=== PATIENT | female | born 1990 | race Caucasian/White ===

== ENCOUNTER 2023-03-01 09:20 | Outpatient (REF) | payer OTHER, SELFPAY ==
[2023-03-01 10:39] LABS: Influenza Virus A Antigen Negative; Influenza Virus B Antigen Negative; Internal Control Within Normal Limits; Strep A Antigen Screen Positive
[2023-03-01 11:58] LABS: SARS-CoV-2 NAA NOT DETECTED (NOT DETECTE)
== END 2023-03-01 09:21 | disposition home or self-care (01) ==
LOC: LAB 09:20
PROVIDERS: PCP Family Medicine; Visit Provider Family Medicine
DX: J02.9 Acute pharyngitis, unspecified (principal); R52 Pain, unspecified
CPT/HCPCS: 87635; 87804; 87880

== ENCOUNTER 2023-04-08 08:22 | Outpatient (OUT) | payer OTHER, SELFPAY ==
--- OUTSIDE RECORDS SUMMARY | 2023-04-08 08:27 | XMS_ITS | CCD ---
Author Name Unknown Address [address] [facility] [address] [place] [id number] Organization [facility] Care Team Providers Care Staff Electronic Warfare Officer Name Role Phone ALIA OLGUIN Unavailable Unavailable NASEEM DELUCA Unavailable Unavailable ALIA OLGUIN Unavailable Unavailable NASEEM DELUCA Unavailable Unavailable YOSI, DR GUSMAN Consulting Unavailable YOSI, DR GUSMAN Attending Unavailable YOSI, DR GUSMAN Admitting Unavailable YOSI, DR GUSMAN Primary Care Unavailable YOSI, DR GUSMAN Primary Care Unavailable JEAN KIM Attending Unavailable JULIO, JEAN Admitting Unavailable TEO, DR VALERIE Velasquez Consulting Unavailable JEAN KIM Consulting Unavailable MENA, DR VENTURA Consulting Unavailable MENA, DR VENTURA Attending Unavailable MENA, DR VENTURA Admitting Unavailable YOSI, DR GUSMAN Primary Care Unavailable Problems Active Problems Problem Classification Problem Date Documented Da te Episodic/Chronic Menstrual disorders (1 source) Amenorrhea, unspecified; Translations: [Amenorrhea, unspecified] Onset: 10-06-2016 Chronic Unclassified (1 source) Less than 8 weeks gestation of ; Translations: [Less than 8 weeks gestation of ] Onset: 10-20-2016 Unclassified (3 sources) COUGH, UNSPECIFIED; Translations: [COUGH, UNSPECIFIED] Onset: 03-25-2022 Unclassified (1 source) CONTACT W/AND (SUSP) EXPOS COVID-19; Translations: [CONTACT W/AND (SUSP) EXPOS COVID-19] Onset: 03-25-2022 Past or Other Problems Problem Classification Problem Date Documented Date Episodic/Chronic Immunizations and screening for infectious disease (1 source) Encounter for screening for human papillomavirus (HPV); Translations: [ENC SCREENING HUMAN PAPILLOMAVIRUS] Onset: 08-31-2021 Episodic Normal and/or delivery (2 sources) Encounter for supervision of other normal , unspecified trimester; Translations: [Encounter for test, result positive] Onset: 10-06-2016 Episodic Other connective tissue disease (4 sources) Pain in left lower leg; Translations: [PAIN IN LEFT LOWER LEG] Onset: 03-30-2021 Episodic Other screening for suspected conditions (not mental disorders or infectious disease) (4 sources) Encounter for screening for malignant neoplasm of cervix; Translations: [ENC SCREENING MALIG NEOPLASM CERV] Onset: 08-30-2021 Episodic Unclassified (1 source) COUGH, UNSPECIFIED; Translations: [COUGH, UNSPECIFIED] Onset: 03-22-2022 Results Test Name Value Interpretation Reference Range [facility]09 SARS-CoV-2 (COVID-19) RNA GLADYS+probe Ql (Unsp spec) Not detected Normal NOT DETECTED [facility] Comment on above: Result Comment: This test is not yet approved or cleared by the [place] FDA. When there are no FDA-approved or cleared tests available, and other criteria are met, FDA can make tests available under an emergency access mechanism called an Emergency Use Authorization (EUA). The EUA for this test is supported by the [place] of Health and Human Service's (HHS's) declaration that circumstances exist to justify the emergency use of in vitro diagnostics for the detection and/or diagnosis of the virus that causes COVID-19. This EUA will remain in effect (meaning this test can be used) for the duration of the COVID-19 declaration justifying emergency of IVDs, unless it is terminated or revoked by FDA (after which the test may no longer be used). When diagnostic testing is negative, the possibility of a false negative should be considered in the context of a patient's recent exposures and the presence of clinical signs and symptoms consistent with SARS-CoV-2. Performed By: #### C VDTBH #### [facility] [address] [place] [address] Renzo Caballero INFLUENZA A AND B AGon 03-22 INFLUANEGH SEE BELOW Normal [facility] Comment on above: Result Comment: Nega tive for Flu A protein angiten. Infection due to Flu A cannot be ruled out. Flu A angiten in the sample may be below the detection limit of the test. Performed By: #### I NFLUAB #### [facility] [address] [place] [address] Dr. Renzo Caballero [facility] SEE BELOW [facility] Comment on above: Result Comment: Nega tive for Flu B protein antigen. Infection due to Flu B cannot be ruled out. Flu B antigen in the sample may be below the detection limit of the test. Performed By: #### I NFLUAB #### [facility] [address] [place] [address] Dr. Renzo Caballero INFLUENZA A AG Negative Normal NEGATIVE SEE COMMENT [facility] Comment on above: Performed By: #### I NFLUAB #### [facility] [address] [place] [address] Dr. Renzo Caballero INFLUENZA B AG Negative Normal NEGATIVE SEE COMMENT [facility] Comment on above: Performed By: #### I NFLUAB #### [facility] [address] [place] [address] Dr. Renzo Caballero PAP ACOG PANEL 2: 30 to 65on 09-02-2021 . . Normal [facility] Comment on above: Result Comment: Perf ormed at: WB Performed By: #### [id number] #### [facility] [address] [place] [address] Dr. Renzo Caballero Age Gdln ACOG Testing 30-65 Normal [facility] Comment on above: Performed By: #### 4 [id number] #### [facility] [address] [place] [address] Dr. Renzo Caballero DIAGNOSIS: Comment Normal [facility] Comment on above: Result Comment: NEGA TIVE FOR INTRAEPITHELIAL LESION OR MALIGNANCY. Performed at: WB Performed By: #### 4 [id number] #### [facility] [address] [place] [address] Dr. Renzo Caballero HPV Aptima Negative Normal Negative [facility] Comment on above: Result Comment: This nucleic acid amplification test detects fourteen high-risk HPV types (16,18,31,33,35,39,45,51,52,56,58,59,66,68) without differentiation. Performed at: =G Performed By: #### 4 [id number] #### [facility] [address] [place] [address] Dr. Renzo Caballero Methodology: Comment Normal [facility] Comment on above: Result Comment: This liquid based ThinPrep(R) pap test was screened with the use of an image guided system. Performed at: WB Performed By: #### 4 [id number] #### [facility] [address] [address] [address] Renzo Caballero Note: Comment Normal [facility] Comment on above: Result Comment: The Pap smear is a screening test designed to aid in the detection of premalignant and malignant conditions of the uterine cervix. It is not a diagnostic procedure and should not be used as the sole means of detecting cervical cancer. Both false-positive and false-negative reports do occur. . Performed at: WB Performed By: #### 4 [id number] #### [facility] [address] [place] [address] Dr. Renzo Caballero Performed by: Comment Normal [facility] Comment on above: Result Comment: Tammie Natarajan, Project Control Manager (ASCP) Performed at: WB Performed By: #### 4 [id number] #### [facility] [address] [address] [address] Renzo Caballero Specimen adequacy: Comment Normal [facility] Comment on above: Result Comment: Sati sfactory for evaluation. Endocervical and/or squamous metaplastic cells (endocervical component) are present. Performed at: WB Performed By: #### 4 [id number] #### [facility] [address] [place] [address] Dr. Renzo Caballero US HILDA DOP LEG LTon 03-30-19 22 US HILDA DOP LEG LT EXAMINATION: US HILDA DOP LEG LT HISTORY: Pain of left lower leg COMPARISON: No relevant comparison available. FINDINGS: REGION: Left lower extremity THROMBI: None. COMPRESSIBILITY: Normal compressibility. FLOW: Normal waveform and antegrade flow between 5 and 20 cm/s. OTHER: None. IMPRESSION: 1. No deep vein thrombus within the left lower extremity. Electronically authenticated by: VALERIE BRUCE Date: 2021-03-30 17:12 Normal [facility] Chlamydia/GC DNA, TPon 10-24 Chlamydia Probe, TP Negative Normal NEG [facility] Comment on above: Result Comment: CHLA MYDIA TRACHOMATIS DNA not detected by nucleic acid amplification. Performed By: #### C YTCGP ####[address] [address] Gonorrhea Probe, TP Negative Normal NEG [facility] Comment on above: Result Comment: NEIS SERIA GONORRHOEAE DNA not detected by nucleic acid amplification.Performed at [address] [address] Performed By: #### C YTCGP ####[address] [address] Cytologyon 10-20-2016 Cytology (NOTE)[id number] Y LABORATORIESCONSULTING PATHOLOGISTS CORPORATIONANATOMIC [id number] [place] [address] [phone] Fax: GYNECOLOGIC CYTOLOGY REPORTPatient Name: SUJATA MONROE#: [id number] #[id number]: Cervical material, (ThinPrep vial, Imaging-assisted review)Clinical History: 7 weeksLEEP: 09/22/creening/routine papHigh Risk HPV DNA testing is requested if the diagnosis is ASC-USPrevious abnormal report: 07/2015, REI IIILMP: 08/10/16INTERPRETATIONCervic al material, (ThinPrep vial, Imaging-assisted review):Specimen Adequacy: Satisfactory for evaluation. - Endocervical/transformatio n zone component present.Descriptive Diagnosis: Negative for intraepithelial lesion or malignancy. Project Control Manager: RUSTY Wilkinson(ASCP)Electronically Signed Out/10/27/2016 Normal [facility] Chlamydia/GC DNA, Uron 10-07 Chlamydia Probe, Ur Negative Normal NEG [facility] Comment on above: Result Comment: CHLA MYDIA TRACHOMATIS DNA not detected by nucleic acid amplification. Performed By: #### U CGP ####[address] [address] Gonorrhea Probe, Ur Negative Normal NEG [facility] Comment on above: Result Comment: NEIS SERIA GONORRHOEAE DNA not detected by nucleic acid amplification.Performed at [address] [address] Performed By: #### U CGP ####[address] [address] Cult,Urine,CCon 10-07-2016 Cult,Urine,CC Specimen Description .URINE Performed at [address] [place] [address] Special Requests ccms Performed at [address] [place] [address] Culture NO SIGNIFICANT GROWTH Performed at [address] [address] Report Status FINAL 10/07/2016 Normal [facility] Comment on above: Performed By: #### C VESNA ####[address] [phone] [place] [address] HIV Ag/Abon 10-07-2016 HIV Ag/Ab NONREACTIVE Normal NR [facility] Comment on above: Result Comment: No l aboratory evidence of HIV infection. If acute HIV infection is suspected, consider testing for HIV-1 RNA.This is an FDA approved immunoassay that detects HIV-1 and HIV-2 antibodies and HIV-1 p24 antigen to screen for infection with HIV-1 or HIV-2.Performed at [address] [address] Performed By: #### H IVCMB ####[address] [address] Hep C Abon 10-07-2016 Hep C Ab NONREACTIVE Normal NR [facility] Comment on above: Result Comment: The hepatitis C procedure used in our laboratory is a Chemiluminescent test specific for three recombinant HCV antigens. A negative anti-HCV result indicates that the antibodies to hepatitis C virus are not present at this time.Individuals with reactive anti-HCV should be considered infected and infectious until proven otherwise. Confirmation of all equivocal or reactive results is recommended by ordering HCV RNA by PCR.Performed at [address] [address] Performed By: #### A HCV ####[address] [address] Profileon 7 T.pallidum Ab Screen NONREACTIVE Normal NR [facility] Comment on above: Result Comment: T. p allidum antibodies are not detected.There is no serological evidence of infection with T. pallidum (early primary syphilis cannot be excluded). Retest in 2-4 weeks if syphilis is clinically suspect.Performed at [address] [address] Performed By: #### P RENAT ####[address] [phone] [place] [address] Hep B Surf Ag NONREACTIVE Normal NR [facility] Comment on above: Result Comment: Perf ormed at [address] [address] Performed By: #### P RENAT ####[address] [phone] [place] [address] Rubella Ab, IgG 265.4 IU/mL Normal [facility] Comment on above: Result Comment: REFE RENCE RANGE:<5.0 NON-REACTIVE (non- immune)5.0 TO 9.9 EQUIVOCAL>=10.0 REACTIVE (immune)NOTE: NEW REFERENCE RANGEPerformed at [address] [address] Performed By: #### P RENAT ####[address] [phone] [place] [address] Profileon 7 Abs. Basophil 0.00 k/uL Normal 0.0-0.2 [facility] Comment on above: Result Comment: Perf ormed at [address] [place] [address] Performed By: #### P RENAT ####[address] [phone] [place] [address] Abs.Neutrophil (Seg) 4.40 k/uL Normal 1.8-7.7 [facility] Comment on above: Result Comment: Perf ormed at [address] [place] [address] Performed By: #### P RENAT ####[address] [phone] [place] [address] Basophils/100 WBC Auto (Bld) 0 % Normal [facility] Comment on above: Result Comment: Perf ormed at [address] [place] [address] Performed By: #### P RENAT ####[address] [phone] [place] [address] Eosinophils 0.30 10*3/uL Normal 0.0-0.4 [facility] Comment on above: Result Comment: Perf ormed at [address] [place] [address] Performed By: #### P RENAT ####[address] [phone] [place] [address] Eosinophils/100 leukocytes 4 % Normal [facility] Comment on above: Result Comment: Perf ormed at [address] [place] [address] Performed By: #### P RENAT ####[address] [phone] [place] [address] Erythrocyte distribution width Auto Ratio (RBC) 13.6 % Normal 12.1-15.2 [facility] Comment on above: Result Comment: Perf ormed at [address] [place] [address] Performed By: #### P RENAT ####[address] [phone] [place] [address] Erythrocytes (RBC) 4.25 10*6/uL Normal 4.0-5.2 [facility] Comment on above: Result Comment: Perf ormed at [address] [place] [address] Performed By: #### P RENAT ####[address] [phone] [place] [address] Hematocrit (HCT) 37.5 % Normal 36-46 [facility] Comment on above: Result Comment: Perf ormed at [address] [place] [address] Performed By: #### P RENAT ####[address] [phone] [place] [address] Hemoglobin mass conc (Bld) 12.4 g/dL Normal 12.0-16.0 [facility] Comment on above: Result Comment: Perf ormed at [address] [place] [address] Performed By: #### P RENAT ####[address] [phone] [place] [address] Lymphocytes 1.90 10*3/uL Normal 1.0-4.8 [facility] Comment on above: Result Comment: Perf ormed at [address] [place] [address] Performed By: #### P RENAT ####[address] [phone] [place] [address] Lymphocytes/100 leukocytes 26 % Normal [facility] Comment on above: Result Comment: Perf ormed at [address] [place] [address] Performed By: #### P RENAT ####[address] [phone] [place] [address] MCH 29.0 pg Normal 26-34 [facility] Comment on above: Result Comment: Perf ormed at [address] [place] [address] Performed By: #### P RENAT ####[address] [phone] [place] [address] MCHC mass conc (RBC) 33.0 g/dL Normal 31-37 [facility] Comment on above: Result Comment: Perf ormed at [address] [place] [address] Performed By: #### P RENAT ####[address] [phone] [place] [address] MCV 88.1 fL Normal 80-100 [facility] Comment on above: Result Comment: Perf ormed at [address] [place] [address] Performed By: #### P RENAT ####[address] [phone] [place] [address] Monocytes 0.70 10*3/uL Normal 0.0-1.0 [facility] Comment on above: Result Comment: Perf ormed at [address] [place] [address] Performed By: #### P RENAT ####[address] [phone] , [facility]83 Monocytes/100 leukocytes 10 % Normal [facility] Comment on above: Result Comment: Perf ormed at [address] [place] [address] Performed By: #### P RENAT ####[address] [phone] [place] [address] Neutrophil (Seg) 60 % Normal [facility] Comment on above: Result Comment: Perf ormed at [address] [place] [address] Performed By: #### P RENAT ####[address] [place] [address] Platelet mean volume (PMV) 8.9 fL Normal 6.0-12.0 [facility] Comment on above: Result Comment: Perf ormed at [address] [place] [address] Performed By: #### P RENAT ####[address] [phone] [place] [address] Platelets 217 10*3/uL Normal 140-450 [facility] Comment on above: Result Comment: Perf ormed at [address] [place] [address] Performed By: #### P RENAT ####[address] [phone] [place] [address] WBC (Leukocytes) 7.3 10*3/uL Normal 3.5-11.0 [facility] Comment on above: Result Comment: Perf ormed at [address] [place] [address] Performed By: #### P RENAT ####[address] [phone] [place] [address] Auto Diff Performed NOT REPORTED Normal [facility] Comment on above: Performed By: #### P RENAT ####[address] [phone] [place] [address] Erythrocyte morphology NOT REPORTED Normal [facility] Comment on above: Performed By: #### P RENAT ####[address] [phone] [place] [address] Platelets NOT REPORTED Normal [facility] Comment on above: Performed By: #### P RENAT ####[address] [place] [phone] [place] [address] WBC Morphology NOT REPORTED Normal [facility] Comment on above: Performed By: #### P RENAT ####[address] [place] [phone] [place] [address] Type + Scrnon 10-06 Type + Scrn ABO/Rh(D) A POSITIVE Antibody Screen NEGATIVE Performed at [address] [place] [address] Normal [facility] Comment on above: Performed By: #### P RTYS ####[address] [place] [address] Toxicology Scree, Urineon Amphetamine(s),Ur Negative Normal NEG [facility] Comment on above: Performed By: #### C PDAU ####[address] [place] [address] Barbiturate(s),Ur Negative Normal NEG [facility] Comment on above: Performed By: #### C PDAU ####[address] [place] [address] Base excess Negative Normal NEG [facility] Comment on above: Performed By: #### C PDAU ####[address] [place] [address] Benzodiazepine(s) Negative Normal NEG [facility] Comment on above: Performed By: #### C PDAU ####[address] [place] [address] Buprenorphrine, Ur Negative Normal NEG [facility] Comment on above: Result Comment: Perf ormed at [address] [place] [address] Performed By: #### C PDAU ####[address] [place] [address] Cannabinoid(s),Ur Positive Abnormal NEG [facility] Comment on above: Performed By: #### C PDAU ####[address] [place] [address] Methamphetamine, Ur Negative Normal NEG [facility] Comment on above: Performed By: #### C PDAU ####[address] [place] [address] Opiate(s), Ur Negative Normal NEG [facility] Comment on above: Performed By: #### C PDAU ####[address] [place] [address] Oxycodone, Urine Negative Normal NEG [facility] Comment on above: Performed By: #### C PDAU ####[address] [place] [address] Phencyclidine, Ur Negative Normal NEG [facility] Comment on above: Performed By: #### C PDAU ####[address] [place] [address] Propoxyphene,Urine Negative Normal NEG [facility] Comment on above: Performed By: #### C PDAU ####[address] [place] [address] Urine, methadone presence Negative Normal NEG [facility] Comment on above: Performed By: #### C PDAU ####[address] [place] [address] Urine, tricyclic antidepressants Negative Normal NEG [facility] Comment on above: Result Comment: Drug screen results are to be used for medical purposes only. All positive results are unconfirmed. Testing for employment or legal uses should be sent to a reference laboratory for confirmation. Performed By: #### C PDAU ####[address] , [place] [id number] Interpretive Info NOT REPORTED Normal [facility] Comment on above: Performed By: #### C PDAU ####[address] , [place] [id number] MDMA, Urine NOT REPORTED Normal NEG [facility] Comment on above: Performed By: #### C PDAU ####[address] [place] [address] Encounters Encounter Date Encounter Type Care Provider Facility Start: 03-22-2022 End: 03-22-[address] NASEEM DELUCA Facility:[facility] Start: 08-30-2021 End: 08-30-[address] AUDREY SAN Facility:[facility] Start: 03-30-2021 End: 03-31-[address] NASEEM DELUCA Facility:[facility] Start: 10-20-2016 End: 10-21-2016 [facility]ulatory [facility] Start: 10-06-2016 End: 10-07-2016 [facility] Procedures Date Procedure Procedure Detail Performing Clinician Start: 10-20-2016 C.TRACHOMATIS N.GONO RRHOEAE DNA, THIN PREP ALIA OLGUIN Start: 10-20-2016 Cytopathology proced ure, preparation of smear, genital source ALIA OLGUIN Start: 10-06-2016 C.TRACHOMATIS N.GONO RRHOEAE DNA, URINE ALIA OLGUIN Start: 10-06-2016 HEPATITIS C ANTIBODY WE SARIAH OLGUIN Start: 10-06-2016 HIV SCREEN ALIA KO Start: 10-06-2016 PROFILE I KENNEDYL CARMENZA OLGUIN Start: 10-06-2016 TYPE AND SCREEN ALIA OLGUIN Start: 10-06-2016 URINE CULTURE CLEAN CATCH ALIA OLGUIN Start: 10-06-2016 URINE DRUG SCREEN, COMPREHENSIVE ALIA OLGUIN Payers Date Payer Category Payer Private Health Insurance [id number] 1990 Unknown [id number] [id number] [id number] 1990 Unknown [id number] 2.16.84 [id number] 1991 Unknown [id number] 2.16.84 [id number] 1958 Unknown [id number] Summary Purpose Family History No Family History Records FoundNo Family History Records Found Advance Directives No Advanced Directives Records FoundNo Advanced Directives Records Found Additional Source Comments INFORMATION SOURCE (unrecogn ized section and content) DATE CREATED AUTHOR 08/02/2017 [facility] DATE CREATED AUTHOR AUTHOR'S MICHELLE WALLACE 03/26/2022 [facility] FOR RECORDS PERTAINING TO PATIENTS WHO ARE OR HAVE BEEN ENROLLED IN A CHEMICAL DEPENDENCY/SUBSTANCEABUSE PROGRAM, SOME INFORMATION MAY BE OMITTED. This clinical summary was aggregated from multiple sources. Caution should be exercised in using it in the provision of clinical care. This summary normalizes information from multiple sources, and as a consequence, information in this document may materially change the coding, format and clinical context of patient data. In addition, data may be omitted in some cases. CLINICAL DECISIONS SHOULD BE BASED ON THE PRIMARY CLINICAL RECORDS. [employer] provides no warranty or guarantee of the accuracy or completeness of [phone] in [phone] [id number]
[2023-04-08 08:47] LABS: Basophils Absolute Auto 0.1 10^3/uL (0.0-0.1); Basophils Percent Auto 0.8 % (0.2-2.0); Eosinophils Absolute Auto 0.4 10^3/uL (0.0-0.7); Eosinophils Percent Auto 4.5 % (0.9-7.0); Hematocrit 41.3 % (36.0-48.0); Hemoglobin 13.6 g/dL (12.0-16.0); Immature Granulocytes Abs Auto 0.04 10^3/uL (0.00-0.03); Immature Granulocytes Pct Auto 0.5 % (0.0-0.5); Lymphocytes Absolute Auto 3.1 10^3/uL (1.2-3.8); Lymphocytes Percent Auto 39.8 % (20.5-60.0); Mean Corpuscular HGB Conc 32.9 g/dL (29.9-35.2); Mean Corpuscular Hemoglobin 29.1 pg (26.7-34.0); Mean Corpuscular Volume 88.4 fL (81.0-99.0); Monocytes Absolute Auto 0.5 10^3/uL (0.3-0.8); Monocytes Percent Auto 6.9 % (1.7-12.0); Neutrophils Absolute Auto 3.7 10^3/uL (1.4-6.5); Neutrophils Percent Auto 47.5 % (43.0-75.0); Platelet Count 246 10^3/uL (150-450); Red Blood Count 4.67 10^6/uL (4.20-5.40); Red Cell Distribution Width 13.1 % (11.0-15.0); White Blood Count 7.8 10^3/uL (4.0-11.0)
[2023-04-08 08:51] LABS: Estimated Average Glucose 88 mg/dL; Glycohemoglobin A1C 4.7 % (4.5-6.2)
[2023-04-08 08:57] LABS: INR 0.99; Partial Thromboplastin Time 27.1 sec (22.3-36.2); Prothrombin Time 10.5 sec (9.0-11.6)
[2023-04-08 09:45] LABS: Alanine Aminotransferase 20 U/L (14-59); Albumin Globulin Ratio 1.2; Albumin Level 4.1 g/dL (3.4-5.0); Alkaline Phosphatase 43 U/L (46-116); Anion Gap 13.7; Aspartate Amino Transferase 11 U/L (15-37); BUN Creatinine Ratio 19.4; Bilirubin Total 0.6 mg/dL (0.2-1.0); Calcium 8.8 mg/dL (8.5-10.1); Carbon Dioxide 25.6 mmol/L (21.0-32.0); Chloride 105 mmol/L (98-107); Estimated GFR (African America >60 (>=60); Estimated GFR (Non-African Ame >60 (>=60); Free T3 3.09 pg/mL (2.18-3.98); Globulin 3.5 g/dL; Glucose 82 mg/dL (74-106); Potassium 4.3 mmol/L (3.5-5.1); Sodium 140 mmol/L (136-145); Thyroid Stimulating Hormone 1.096 uIU/mL (0.358-3.740); Total Protein 7.6 g/dL (6.4-8.2)
== END 2023-04-08 08:23 | disposition home or self-care (01) ==
LOC: LAB 08:25
PROVIDERS: PCP Family Medicine; Visit Provider Family Medicine
DX: K62.5 Hemorrhage of anus and rectum (principal); R10.9 Unspecified abdominal pain; R73.09 Other abnormal glucose; Z12.12 Encounter for screening for malignant neoplasm of rectum; D64.9 Anemia, unspecified
CPT/HCPCS: 36415; 80053; 83036; 83540; 84436; 84443; 84481; 85025; 85610; 85730